=== PATIENT | male | born 1990 | race Caucasian/White ===

== ENCOUNTER 2017-05-30 08:23 | Emergency (ER) | payer OTHER, BC ==
[2017-05-30] MEDS ORDERED: Ketorolac 60 MG/2 ML SDV IM ONE (08:49)
--- NOTE | 2017-05-30 08:54 | EDM.PDOC ---
ED HPI GENERAL MEDICAL PROBLEM - General Chief Complaint: Back Pain or Injury Stated Complaint: lower back pain work related injury Time Seen by Provider: 05/30/17 08:51 Source of Information: Reports: Patient - History of Present Illness INITIAL COMMENTS - FREE TEXT/NARRATIVE: HISTORY AND PHYSICAL: History of present illness: [Patient at work yesterday lifting a sliding door he had developed low back pain at that time, it is been increasing in severity throughout the night he denies any radiation he rates the pain 7 out of 10 at current he refers to the pain along the right "back strap "area essentially right paraspinous muscle worsen the lumbar region but I can reproduce symptoms of 2 thoracic she also has some vertebral point tenderness on the lumbar spine on exam No fever nausea vomiting chills sweats no chest pain shortness breath headache dizziness or palpitation no bowel or urine symptoms specifically no footdrop or saddle anesthesia bowel or urine symptoms denies any radiculopathy Review of systems: As per history of present illness and below otherwise all systems reviewed and negative. Past medical history: As per history of present illness and as reviewed below otherwise noncontributory. Surgical history: As per history of present illness and as reviewed below otherwise noncontributory. Social history: No reported history of drug or alcohol abuse. Family history: As per history of present illness and as reviewed below otherwise noncontributory. Physical exam: HEENT: Atraumatic, normocephalic, pupils reactive, negative for conjunctival pallor or scleral icterus, mucous membranes moist, throat clear, neck supple, nontender, trachea midline. Lungs: Clear to auscultation, breath sounds equal bilaterally, chest nontender. Heart: S1S2, regular, negative for clicks, rubs, or JVD. Abdomen: Soft, nondistended, nontender. Negative for masses or hepatosplenomegaly. Negative for costovertebral tenderness. Pelvis: Stable nontender. Genitourinary: Deferred. Rectal: Deferred. Extremities: Atraumatic, negative for cords or calf pain. Neurovascular unremarkable. Neuro: Awake, alert, oriented. Cranial nerves II through XII unremarkable. Cerebellum unremarkable. Motor and sensory unremarkable throughout. Exam nonfocal. Musculoskeletal as per history of present illness otherwise unremarkable Diagnostics: []Lumbar spine plain films Therapeutics: []Toradol 60 IM Cataflam Flexeril No driving or alcohol on the Flexeril Follow-up with primary care 2 weeks or occupational health Impression: []Paraspinous muscles spasm Low back strain Definitive disposition and diagnosis as appropriate pending reevaluation and review of above. Lower Back Pain Score (Numeric/FACES): 9 - Related Data Allergies Allergy/AdvReac Type Severity Reaction Status Date / Time bee venom protein (honey bee) Allergy Anaphylactic Verified 05/30/17 08:40 Shock Penicillins Allergy Hives Verified 05/30/17 08:40 Home Meds: Home Meds Omeprazole [Prilosec] 1 cap PO DAILY 04/24/15 [History] Losartan [Cozaar] 100 mg PO BID 05/30/17 [History] Past Medical History Cardiovascular History: Reports: Hypertension Respiratory History: Reports: Asthma Other Gastrointestinal History: acid reflux Social & Family History - Family History Family Medical History: Noncontributory - Tobacco Use Smoking Status *Q: Never Smoker Second Hand Smoke Exposure: No - Caffeine Use Caffeine Use: Reports: Coffee, Energy Drinks, Soda - Alcohol Use Days Per Week of Alcohol Use: 1 Number of Drinks Per Day: 3 Total Drinks Per Week: 3 - Recreational Drug Use Recreational Drug Use: No ED ROS GENERAL - Review of Systems Review Of Systems: ROS reveals no pertinent complaints other than HPI. ED EXAM, GENERAL - Physical Exam Exam: See Below Course - Vital Signs Last Recorded V/S: Last Vital Signs Temp 37.1 C 05/30/17 08:41 Pulse 72 05/30/17 08:41 Resp 18 05/30/17 08:41 BP 133/88 05/30/17 08:41 Pulse Ox 99 05/30/17 08:41 - Orders/Labs/Meds Orders: Active Orders 24 hr Category Date Time Status Lumbar Spine 2 or 3V [CR] Stat Exams 05/30/17 08:49 Taken Meds: Medications Discontinued Medications Generic Name Dose Route Start Last Admin Trade Name Freq PRN Reason Stop Dose Admin Ketorolac Tromethamine 60 mg 05/30/17 08:49 05/30/17 09:19 Toradol IM 05/30/17 08:50 60 mg ONETIME ONE Administration Departure - Departure Time of Disposition: 09:23 Disposition: Home, Self-Care 01 Condition: Good Clinical Impression: Paraspinal muscle spasm - Discharge Information Referrals: PCP,None [Primary Care Provider] - Forms: ED Department Discharge Additional Instructions: Medication as prescribed Return if symptoms persist or worsen or new concerning symptoms develop Follow-up with primary care in 2 weeks sooner as needed, your employer may require the and occupational health physician [facility] [address] [place] [address] [facility] [address] [place] [address] The following information is given to patients seen in the emergency department who are being discharged to home. This information is to outline your options for follow-up care. We provide all patients seen in our emergency department with a follow-up referral. The need for follow-up, as well as the timing and circumstances, are variable depending upon the specifics of your emergency department visit. If you don't have a primary care physician on staff, we will provide you with a referral. We always advise you to contact your personal physician following an emergency department visit to inform them of the circumstance of the visit and for follow-up with them and/or the need for any referrals to a consulting specialist. The emergency department will also refer you to a specialist when appropriate. This referral assures that you have the opportunity for follow-up care with a specialist. All of these measure are taken in an effort to provide you with optimal care, which includes your follow-up. Under all circumstances we always encourage you to contact your private physician who remains a resource for coordinating your care. When calling for follow-up care, please make the office aware that this follow-up is from your recent emergency room visit. If for any reason you are refused follow-up, please contact the [facility] emergency department at and asked to speak to the emergency department charge nurse. - My Orders Last 24 Hours: My Active Orders 05/30/17 08:49 Lumbar Spine 2 or 3V [CR] Stat - Assessment/Plan Last 24 Hours: My Active Orders 05/30/17 08:49 Lumbar Spine 2 or 3V [CR] Stat
[2017-05-30 09:49] VITALS: BP 134/64
--- NOTE | 2017-05-30 11:34 | CR ---
EXAM DATE: 05/30/17 PATIENT'S AGE: 26 Patient: WILLY YORK Facility: [place], [place] Site . Site : [id number] Study: XRay Spine Lumbar [id number]/14/2017 9:08:41 AM Ordering Physician: Shakir Monroy Final Report: INDICATION: Back pain TECHNIQUE: 3-view lumbar spine. COMPARISON: none FINDINGS: The lumbar vertebrae are anatomically aligned. The disc spaces are of normal height. The facet joints appear intact. There is no evidence of a fracture or intrinsic bone lesion. The SI joints appear normal. The paraspinal soft tissues appear normal. IMPRESSION: Negative lumbar spine. Dictated by Miah Nunez MD @ May 30 2017 9:11AM (Electronic Signature) Report Signed by Proxy. FELIPA
== END 2017-05-30 09:41 | disposition home or self-care (01) ==
LOC: MW.ED 08:23
DX: S39.012A Strain of muscle, fascia and tendon of lower back, initial encounter (principal); M62.830 Muscle spasm of back; Z91.030 Bee allergy status; Z88.0 Allergy status to penicillin; Z79.899 Other long term (current) drug therapy; X50.0XXA Overexertion from strenuous movement or load, initial encounter; Y99.0 Civilian activity done for income or pay
CPT/HCPCS: 72100; 96372; 99283; J1885